=== PATIENT | male | born 1945 | race Caucasian/White ===

== ENCOUNTER 2020-04-01 11:23 | Inpatient (IN) | payer MEDICARE, OTHER ==
[~2020-04-01] VITALS: Ht 185.4 cm; Wt 103.3 kg
[~2020-04-01 11:23] MED LIST: ASPIR-LOX325 MG PO; BACTRIM 400 MG-1 TAB PO; CIPRO 500MG TA500 MG PO; COZAAR100 MG PO; FLOMAX 0.40.4 MG/CAP PO; LISINOPRIL40 MG PO; MEVACOR10 MG PO; NORCO 325 MG-51 TAB PO; NORVASC 10MG10 MG PO; SOTALOL80 MG PO; TEKTURNA300 MG PO
[2020-06-09] VITALS (12 sets, daily range): BP systolic 94–138; BP diastolic 57–80; PULSE 47–76; TEMP 97–987
[2020-06-09] MEDS ORDERED: DEMADEX10 MG PO (10:39)
[2020-06-09] MEDS ORDERED: FLOMAX 0.40.4 MG/CAP PO (10:41)
[2020-06-09] MEDS ORDERED: ATACAND32 MG PO (10:42)
[2020-06-09] MEDS ORDERED: BETAPACE 80MG80 MG PO (10:42)
[2020-06-09] MEDS ORDERED: NORVASC 10MG10 MG PO (10:43)
[2020-06-09] MEDS ORDERED: INSPRA50 MG PO (10:43)
[2020-06-09] MEDS ORDERED: ASPIRIN 32325 MG/TAB PO (10:44)
[2020-06-09] MEDS ORDERED: VITAMIND3 5000 PO (10:45)
[2020-06-09] MEDS ORDERED: CALTRATE-600 W600 MG PO (10:45)
[2020-06-09] MEDS ORDERED: TYLENOL 500MG500 MG PO (10:46)
[2020-06-09] MEDS ORDERED: MOTRIN 600600 MG/TAB PO (10:47)
[2020-06-09] MEDS ORDERED: MASON NATURAL1200 MG PO (10:47)
[2020-06-09] MEDS ORDERED: FOLIC ACID 40400 MCG PO (10:48)
[2020-06-09] MEDS ORDERED: METAMUCIL3.4 GM/DOS PO (10:50)
[2020-06-09] MEDS ORDERED: MIRALAX PA17 GM/Dose PO (10:51)
[2020-06-09] MEDS ORDERED: VITAMIN C500 MG PO (10:52)
[2020-06-09] MEDS ORDERED: B-121000 MCG PO (10:52)
[2020-06-09] MEDS ORDERED: IRON TABLETS325 MG PO (10:53)
[2020-06-10 00:16] VITALS: BP 147/81; PULSE 66; TEMP 97.9
[2020-06-10 04:55] VITALS: BP 133/75; PULSE 69; TEMP 97.8
[2020-06-10 07:12] LABS: HEMOGLOBIN 11.2 g/dl (13.5-18.0)
[2020-06-10 07:13] LABS: HEMATOCRIT 33.4 % (42.0-52.0)
[2020-06-10 07:27] VITALS: BP 124/76; PULSE 65; TEMP 98.4
[2020-06-10 12:00] VITALS: BP 114/73; PULSE 58; TEMP 97.5
[2020-06-10 16:00] VITALS: BP 133/72; PULSE 59; TEMP 97.9
[2020-06-10 20:00] VITALS: BP 125/73; PULSE 65; TEMP 98.6
[2020-06-11 00:27] VITALS: BP 120/65; PULSE 70; TEMP 98.9
[2020-06-11 03:10] VITALS: BP 143/78; PULSE 66; TEMP 98.4
[2020-06-11] MEDS ORDERED: ASPIRIN 32325 MG/TA1 PO (06:16)
[2020-06-11] MEDS ORDERED: ULTRAM 50MG TAB50 MG PO (06:16)
[2020-06-11] MEDS ORDERED: NORCO 325 MG-7.1 TAB PO (06:16)
[2020-06-11] MEDS ORDERED: CELEBREX 200MG200 MG PO (06:16)
[2020-06-11 07:08] LABS: HEMOGLOBIN 10.3 g/dl (13.5-18.0)
[2020-06-11 07:14] LABS: HEMATOCRIT 31.1 % (42.0-52.0)
[2020-06-11 07:43] VITALS: BP 115/66; PULSE 63; TEMP 97.9
[2020-06-11 11:05] VITALS: BP 94/64; PULSE 58; TEMP 98.1
[2020-08-06] MEDS ORDERED: CELEXA 20MG20 MG/TAB PO (07:41)
[2020-08-15] MEDS ORDERED: CELEBREX 200MG200 MG PO (08:11)
== END 2020-06-11 13:58 | disposition home or self-care (01) | DRG 470 ==
LOC: SURG 06-09 07:30 → INPTSU 06-09 09:27 → SURG 06-09 11:30
PROVIDERS: Physician Assistant; ADMIT Orthopaedic Surgery
PROC: 0SRC0J9 Replacement of Right Knee Joint with Synthetic Substitute, Cemented, Open Approach (ICD-10-PCS; principal; 2020-06-09 11:30)
DX: M17.11 Unilateral primary osteoarthritis, right knee (principal); I10 Essential (primary) hypertension; E78.00 Pure hypercholesterolemia, unspecified; E11.9 Type 2 diabetes mellitus without complications; Z88.0 Allergy status to penicillin; Z85.46 Personal history of malignant neoplasm of prostate
CPT/HCPCS: A4314; C1776; J0690; J1885; J2250; J2270; J2405; J2704; J3010; J7030

== ENCOUNTER 2020-06-28 16:29 | Emergency (ER) | payer MEDICARE, OTHER ==
[~2020-06-28] VITALS: Ht 185.4 cm; Wt 100.0 kg
[~2020-06-28 16:29] MED LIST changes: +ASPIRIN 32325 MG/TA1 PO; +ASPIRIN 32325 MG/TAB PO; +ATACAND32 MG PO; +B-121000 MCG PO; +BETAPACE 80MG80 MG PO; +CALTRATE-600 W600 MG PO; +CELEBREX 200MG200 MG PO; +DEMADEX10 MG PO; +FOLIC ACID 40400 MCG PO; +INSPRA50 MG PO; +IRON TABLETS325 MG PO; +MASON NATURAL1200 MG PO; +METAMUCIL3.4 GM/DOS PO; +MIRALAX PA17 GM/Dose PO; +MOTRIN 600600 MG/TAB PO; +NORCO 325 MG-7.1 TAB PO; +TYLENOL 500MG500 MG PO; +ULTRAM 50MG TAB50 MG PO; +VITAMIN C500 MG PO; +VITAMIND3 5000 PO
[2020-06-28 16:36] VITALS: TEMP 98.4
[2020-06-28 17:15] LABS: BASO # 0.1 (0.0-0.2); BASO % 0.4 % (0.0-2.0); EOS # 0.1 (0.0-0.7); EOS % 1.2 % (0-4.0); GRAN # 8.8 (1.4-6.5); GRAN % 77.5 % (42.2-75.2); HEMOGLOBIN 10.9 g/dl (13.5-18.0); LYMPH # 1.2 (1.2-3.4); LYMPH % 10.2 % (20.0-51.0); MEAN CELL VOLUME 91 fl (80.0-100.0); MEAN CORPUSCULAR HEMOGLOBIN 30 pg (27.0-31.0); MEAN CORPUSCULAR HGB CONC 33 g/dl (33.0-37.0); MEAN PLATELET VOLUME 8.7 fl (7.4-10.4); MONO # 1.2 (0.1-0.6); MONO % 10.3 % (1.7-9.3); PLATELET COUNT 373 K/mm3 (130-400); RED BLOOD COUNT 3.64 M/mm3 (4.20-5.60); REDCELL DISTRIBUTION WIDTH-CV 12.8 % (11.5-14.5)
[2020-06-28 17:31] LABS: BILIRUBIN,TOTAL 0.3 mg/dL (0.0-1.0); CALCIUM 9.1 mg/dL (8.4-10.2); CREATININE, serum 1.07 (0.66-1.25); TOTAL PROTEIN 7.4 gm/dL (6.4-8.2)
[2020-06-28 18:44] VITALS: BP 125/78; PULSE 61
[2020-08-06] MEDS ORDERED: CELEXA 20MG20 MG/TAB PO (07:41)
[2020-08-15] MEDS ORDERED: CELEBREX 200MG200 MG PO (08:11)
== END 2020-06-28 19:05 | disposition home or self-care (01) ==
LOC: COL.ER 16:29
PROVIDERS: Nurse Practitioner Primary Care
DX: T81.41XA Infection following a procedure, superficial incisional surgical site, initial encounter (principal); T81.30XA Disruption of wound, unspecified, initial encounter; D72.829 Elevated white blood cell count, unspecified; E11.9 Type 2 diabetes mellitus without complications; Z96.652 Presence of left artificial knee joint; X58.XXXA Exposure to other specified factors, initial encounter
CPT/HCPCS: J0696; J7030

== ENCOUNTER 2020-07-06 18:15 | Inpatient (IN) | payer MEDICARE, OTHER ==
[~2020-07-06] VITALS: Ht 185.4 cm; Wt 97.7 kg
[2020-07-06] MEDS ORDERED: CIPRO 250MG TA250 MG PO (19:47)
[2020-07-06] MEDS ORDERED: MINOCYCLIN100 MG/CAP PO (19:47)
--- NOTE | 2020-07-06 19:58 | NUR ---
Patient admited via EMS, up to restroom with SBA. Gauze and tape dressing to right knee is CDI. INT to right AC without complications. Patient oriented to room. All questions answered. No further needs at this time.
[2020-07-06 21:55] LABS: BASO # 0.1 (0.0-0.2); EOS # 0.3 (0.0-0.7); EOS % 4.1 % (0-4.0); GRAN # 4.3 (1.4-6.5); GRAN % 58.7 % (42.2-75.2); LYMPH # 1.8 (1.2-3.4); LYMPH % 25.1 % (20.0-51.0); MEAN CELL VOLUME 92 fl (80.0-100.0); MEAN CORPUSCULAR HGB CONC 31 g/dl (33.0-37.0); MEAN PLATELET VOLUME 8.4 fl (7.4-10.4); MONO # 0.8 (0.1-0.6); MONO % 10.7 % (1.7-9.3); PLATELET COUNT 480 K/mm3 (130-400); RED BLOOD COUNT 3.45 M/mm3 (4.20-5.60); REDCELL DISTRIBUTION WIDTH-CV 12.9 % (11.5-14.5)
[2020-07-06 21:56] LABS: HEMATOCRIT 31.6 % (42.0-52.0); HEMOGLOBIN 9.8 g/dl (13.5-18.0); MEAN CORPUSCULAR HEMOGLOBIN 28 pg (27.0-31.0)
[2020-07-06 22:10] VITALS: BP 119/74; PULSE 69; TEMP 98.8
[2020-07-06 22:38] LABS: CALCIUM 8.8 mg/dL (8.4-10.2); CREATININE, serum 0.88 (0.66-1.25); POTASSIUM 4.4 mmol/L (3.4-5.0)
--- NOTE | 2020-07-06 23:30 | NUR ---
Patient requested his IV be moved due to it occluding when he bends his arm. New IV to left wrist. IV in AC discontinued. Vancomycin infusing. Sent a culture of patient's wound on knee down to lab. Covered with gauze and tape. Patient has been voiding in urinal. No additional needs at this time.
--- NOTE | 2020-07-06 23:34 | NUR ---
Vancomycin Initial Dosing Pharmacy Note Ordering provider: Sang Solares MD 74 YO M Indication/duration: BONE/JOINT INFECTION (5 DAYS) GOAL: 15-20 HX: NONE IDENTIFIED BMI: 28.4 WT: 97.7 KG SCR: 0.88 ESTCRCL~ 102 ML/MIN T 1/2 ~ 8H TMAX: 98.8 WBC: WNL LA: WNL MICRO PENDING PT LOADED WITH VANCO 2 GM X1 (~20 MG/KG). WILL START A MAINTENANCE REGIMEN OF 1.75 GM Q12H. WILL FOLLOW RENAL FUNCTION, MICRO, AND CARE PLAN FOR NEED TO ADJUST THERAPY. THANK YOU FOR THIS DOSING CONSULT!
[2020-07-06 23:58] VITALS: BP 128/71; PULSE 68; TEMP 98.3
[2020-07-07 04:00] VITALS: BP 118/75; PULSE 66; TEMP 99.3
[2020-07-07 06:54] LABS: BASO # 0.1 (0.0-0.2); BASO % 0.8 % (0.0-2.0); EOS # 0.3 (0.0-0.7); GRAN # 3.7 (1.4-6.5); GRAN % 55.6 % (42.2-75.2); LYMPH # 1.7 (1.2-3.4); LYMPH % 26.2 % (20.0-51.0); MEAN CELL VOLUME 92 fl (80.0-100.0); MEAN CORPUSCULAR HGB CONC 32 g/dl (33.0-37.0); MEAN PLATELET VOLUME 8.4 fl (7.4-10.4); MONO # 0.8 (0.1-0.6); MONO % 11.6 % (1.7-9.3); PLATELET COUNT 471 K/mm3 (130-400); RED BLOOD COUNT 3.11 M/mm3 (4.20-5.60)
[2020-07-07 06:55] LABS: HEMATOCRIT 28.6 % (42.0-52.0); HEMOGLOBIN 9.2 g/dl (13.5-18.0); MEAN CORPUSCULAR HEMOGLOBIN 30 pg (27.0-31.0)
[2020-07-07 06:56] LABS: ALBUMIN 3.4 gm/dL (3.5-5.0); BILIRUBIN,TOTAL 0.2 mg/dL (0.0-1.0); CALCIUM 8.5 mg/dL (8.4-10.2); CREATININE, serum 0.64 (0.66-1.25); POTASSIUM 4.2 mmol/L (3.4-5.0); TOTAL PROTEIN 6.7 gm/dL (6.4-8.2)
--- NOTE | 2020-07-07 07:06 | NUR ---
Pt resting in bed. He has just received his breakfast. He reports having a little nausea, but is hoping that the breakfast helps. Will return to check on him, call light within reach
--- NOTE | 2020-07-07 07:14 | NUR ---
ALICJA Ortez notified of consult.
[2020-07-07 07:42] VITALS: BP 127/74; PULSE 66; TEMP 97.9
[2020-07-07] MEDS ORDERED: ASPIRIN 32325 MG/TAB PO (09:59)
--- NOTE | 2020-07-07 10:09 | NUR ---
Pt has done well this morning. He has been up with therapy, has been seen by PT, Dr Morrison, Ortho and anesthesia. Pt is aware that he is having an UGI tomorrow. Dressing to his right knee was removed and changed to a wet to dry per his home routine prior to coming in. Quarter size area scabbed. Small area red pt reports due to tape prior to coming to the hospital. Pt has minimal pain complaints. He states overall the main reason for coming in is the upset stomach he has been having.
--- NOTE | 2020-07-07 12:51 | NUR ---
First visit from the brick picker. No needs right now.
[2020-07-07 13:00] VITALS: BP 132/67; PULSE 72; TEMP 98.3
--- NOTE | 2020-07-07 15:53 | NUR ---
Airframe Technical Officer met with patient to discuss discharge planning. Patient lives in [place] with his , Regi (ph#[phone]) and sees Dr. Orta for primary care. Patient obtains medications from [facility] with no difficulties. Patient has a cane and walker at home and reports independence with ADLS. Patient has DPOA-HC in EMR which designates his , Regi and daughter, Carolynn. Patient plans to return home upon discharge and continue with outpatient PT at [facility]. Discharge Plan: Home
[2020-07-07 16:23] VITALS: BP 127/80; PULSE 69; TEMP 98.3
--- NOTE | 2020-07-07 17:21 | NUR ---
Pt has done well throughout the day. Wet to dry dressing repeated to right knee. No drainage on dressing removed, although area is now soft and moist
[2020-07-07 19:18] VITALS: BP 129/65; PULSE 72; TEMP 99.3
--- NOTE | 2020-07-07 21:00 | NUR ---
Patient resting in bed, no complaints of pain. Fluids infusing per orders. Wet to dry dressing to right knee was changed. Patient tolerating food in small amounts. Patient is aware he will be NPO after midnight for EGD tomorrow morning.
[2020-07-07 23:52] VITALS: BP 122/77; PULSE 62; TEMP 99
[2020-07-08 05:14] VITALS: BP 127/73; PULSE 59; TEMP 98.8
--- NOTE | 2020-07-08 06:40 | NUR ---
PT done for upper GI
--- NOTE | 2020-07-08 06:45 | NUR ---
Patient taken down for EGD.
[2020-07-08 06:55] LABS: BASO # 0.1 (0.0-0.2); BASO % 1.1 % (0.0-2.0); EOS # 0.3 (0.0-0.7); EOS % 5.3 % (0-4.0); GRAN % 54.6 % (42.2-75.2); LYMPH # 1.4 (1.2-3.4); LYMPH % 26.1 % (20.0-51.0); MEAN CELL VOLUME 91 fl (80.0-100.0); MEAN CORPUSCULAR HGB CONC 32 g/dl (33.0-37.0); MEAN PLATELET VOLUME 8.4 fl (7.4-10.4); MONO # 0.7 (0.1-0.6); PLATELET COUNT 432 K/mm3 (130-400); RED BLOOD COUNT 3.21 M/mm3 (4.20-5.60); REDCELL DISTRIBUTION WIDTH-CV 12.7 % (11.5-14.5)
[2020-07-08 06:56] LABS: HEMATOCRIT 29.2 % (42.0-52.0); HEMOGLOBIN 9.3 g/dl (13.5-18.0); MEAN CORPUSCULAR HEMOGLOBIN 29 pg (27.0-31.0)
[2020-07-08 07:16] LABS: C-REACTIVE PROTEIN 2.5 mg/dL (0.0-0.9); CALCIUM 8.6 mg/dL (8.4-10.2); CREATININE, serum 0.66 (0.66-1.25); MAGNESIUM 1.9 mg/dL (1.6-2.3)
[2020-07-08 07:30] VITALS: BP 122/72; PULSE 63; TEMP 98.2
--- NOTE | 2020-07-08 07:40 | NUR ---
Pt back up from upper GI. Pt is awake and has no complaints of pain. He did ambulate to transfer to his bed. His is present in the room. He reports that he is not hungry at this time and is wanting to rest
[2020-07-08 07:44] VITALS: BP 140/91; PULSE 60; TEMP 98.1
[2020-07-08 07:45] VITALS: BP 132/78; PULSE 59
[2020-07-08 08:00] VITALS: BP 131/80; PULSE 58
[2020-07-08 08:15] VITALS: BP 137/77; PULSE 59
[2020-07-08] MEDS ORDERED: TUMS ULTRA ST1000 MG PO (09:19)
[2020-07-08] MEDS ORDERED: FERROUS SU325 MG/TAB PO (09:19)
[2020-07-08] MEDS ORDERED: PROTONIX 40MG T40 MG PO (09:21)
--- NOTE | 2020-07-08 11:25 | NUR ---
Reviewed discharge instructions with pt to include follow up appointment and prescriptions. INT removed from left wrist. Informed him to notify nursing when his arrives
[2020-08-06] MEDS ORDERED: CELEXA 20MG20 MG/TAB PO (07:41)
[2020-08-15] MEDS ORDERED: CELEBREX 200MG200 MG PO (08:11)
== END 2020-07-08 11:42 | disposition home or self-care (01) | DRG 863 ==
LOC: SURG 18:15
PROVIDERS: Internal Medicine Gastroenterology; Student in an Organized Health Care Education/Training Program; ADMIT Internal Medicine
PROC: 0DB68ZX Excision of Stomach, Via Natural or Artificial Opening Endoscopic, Diagnostic (ICD-10-PCS; principal; 2020-07-08 07:00)
DX: T81.41XA Infection following a procedure, superficial incisional surgical site, initial encounter (principal); L02.415 Cutaneous abscess of right lower limb; K21.9 Gastro-esophageal reflux disease without esophagitis; I10 Essential (primary) hypertension; E11.9 Type 2 diabetes mellitus without complications; M54.9 Dorsalgia, unspecified; G89.29 Other chronic pain; Z66 Do not resuscitate; K29.70 Gastritis, unspecified, without bleeding; N40.0 Benign prostatic hyperplasia without lower urinary tract symptoms; D64.9 Anemia, unspecified; K59.09 Other constipation; T39.395A Adverse effect of other nonsteroidal anti-inflammatory drugs [NSAID], initial encounter; T36.95XA Adverse effect of unspecified systemic antibiotic, initial encounter; I49.9 Cardiac arrhythmia, unspecified; Z85.46 Personal history of malignant neoplasm of prostate; Z96.653 Presence of artificial knee joint, bilateral; Z79.82 Long term (current) use of aspirin; Z87.891 Personal history of nicotine dependence; Z88.0 Allergy status to penicillin; Z88.8 Allergy status to other drugs, medicaments and biological substances; Z92.3 Personal history of irradiation
CPT/HCPCS: 99223-AI; 99232-AI; 99239; J2704; J3370; J7030; J7040; J7050

== ENCOUNTER 2020-08-04 08:36 | Outpatient (CLI) | payer MEDICARE, OTHER ==
[~2020-08-04] VITALS: Ht 185.4 cm; Wt 94.8 kg
[~2020-08-04 08:36] MED LIST changes: +CIPRO 250MG TA250 MG PO; +FERROUS SU325 MG/TAB PO; +MINOCYCLIN100 MG/CAP PO; +PROTONIX 40MG T40 MG PO; +TUMS ULTRA ST1000 MG PO
[2020-08-04 09:34] VITALS: BP 114/72; PULSE 63; TEMP 98
[2020-08-06] MEDS ORDERED: CELEXA 20MG20 MG/TAB PO (07:41)
[2020-08-15] MEDS ORDERED: CELEBREX 200MG200 MG PO (08:11)
== END 2020-08-04 09:58 | disposition home or self-care (01) ==
LOC: EUO 08:36
DX: Z45.2 Encounter for adjustment and management of vascular access device (principal); Z96.641 Presence of right artificial hip joint; M25.461 Effusion, right knee
CPT/HCPCS: C1751

== ENCOUNTER 2020-09-22 09:00 | Outpatient (RCR) | payer MEDICARE, OTHER ==
[2020-08-06 07:46] VITALS: BP 122/73; PULSE 74; TEMP 98.3
[2020-08-07 07:45] VITALS: BP 112/73; PULSE 64; TEMP 97.6
[2020-08-08 08:30] VITALS: BP 133/81; PULSE 67; TEMP 98.5
[2020-08-09 08:53] VITALS: BP 124/70; PULSE 60; TEMP 97.4
[2020-08-10 07:54] VITALS: BP 114/73; PULSE 67; TEMP 98.2
[2020-08-10 08:11] LABS: CALCIUM 9.6 mg/dL (8.4-10.2); CREATININE, serum 0.74 (0.66-1.25); POTASSIUM 4.6 mmol/L (3.4-5.0)
[2020-08-11 07:40] VITALS: BP 134/71; PULSE 68; TEMP 98
[2020-08-12 07:42] VITALS: BP 114/75; PULSE 72; TEMP 98
[2020-08-13 08:13] VITALS: BP 119/77; PULSE 81; TEMP 98.4
[2020-08-14 07:37] VITALS: BP 125/82; PULSE 67; TEMP 97.8
[2020-08-15 08:13] VITALS: BP 126/80; PULSE 70; TEMP 98.3
[2020-08-16 08:12] VITALS: BP 120/77; PULSE 66; TEMP 98.1
[2020-08-17 07:37] VITALS: BP 117/77; PULSE 65; TEMP 98.2
[2020-08-17 09:08] LABS: CALCIUM 9.5 mg/dL (8.4-10.2); CREATININE, serum 0.74 (0.66-1.25); POTASSIUM 4.3 mmol/L (3.4-5.0)
[2020-08-18 07:38] VITALS: BP 121/76; PULSE 70; TEMP 97.9
[2020-08-19 08:26] VITALS: BP 113/77; PULSE 55; TEMP 97.9
[2020-08-20 07:38] VITALS: BP 114/76; PULSE 65; TEMP 98.3
--- NOTE | 2020-08-20 07:41 | NUR ---
PT ARRIVED TO ROOM 14. PT'S VSS, MED REVIEWED. PICC ASSESSED. MEDS GIVEN.
[2020-08-21 07:37] VITALS: BP 114/76; PULSE 63; TEMP 98.5
[2020-08-22 07:34] VITALS: BP 117/78; PULSE 65; TEMP 98.5
[2020-08-23 07:59] VITALS: BP 117/75; PULSE 62; TEMP 98.1
[2020-08-24 07:44] VITALS: BP 123/77; PULSE 70; TEMP 98.3
[2020-08-24 08:04] LABS: CALCIUM 9.4 mg/dL (8.4-10.2); CREATININE, serum 0.63 (0.66-1.25); POTASSIUM 4.4 mmol/L (3.4-5.0)
[2020-08-25 07:40] VITALS: BP 124/75; PULSE 65; TEMP 98.4
[2020-08-26 07:43] VITALS: BP 103/64; PULSE 68; TEMP 98.2
[2020-08-27 07:41] VITALS: BP 109/76; PULSE 68; TEMP 98.4
[2020-08-28 07:36] VITALS: BP 135/76; PULSE 60; TEMP 98.5
[2020-08-29 07:45] VITALS: BP 122/77; PULSE 62; TEMP 98.4
[2020-08-30 07:41] VITALS: BP 126/79; PULSE 60; TEMP 98.4
[2020-08-31 07:37] VITALS: BP 122/79; PULSE 63; TEMP 98.4
[2020-08-31 08:03] LABS: CALCIUM 9.5 mg/dL (8.4-10.2); CREATININE, serum 0.68 (0.66-1.25); POTASSIUM 4.3 mmol/L (3.4-5.0)
[2020-09-01 07:45] VITALS: BP 118/82; PULSE 66; TEMP 98.7
[2020-09-02 07:42] VITALS: BP 104/69; PULSE 69; TEMP 98.5
[2020-09-03 07:43] VITALS: BP 126/83; PULSE 66; TEMP 98.6
[2020-09-04 07:43] VITALS: BP 106/70; PULSE 63; TEMP 97.9
[2020-09-05 07:44] VITALS: BP 117/81; PULSE 65; TEMP 97.9
[2020-09-06 10:00] VITALS: BP 129/76; PULSE 68; TEMP 97.8
[2020-09-07 07:57] VITALS: BP 124/77; PULSE 62; TEMP 97.9
[2020-09-07 08:19] LABS: CALCIUM 9.2 mg/dL (8.4-10.2); CREATININE, serum 0.68 (0.66-1.25); POTASSIUM 4.3 mmol/L (3.4-5.0)
[2020-09-08 07:35] VITALS: BP 123/75; PULSE 66; TEMP 97.8
[2020-09-09 07:37] VITALS: BP 113/70; PULSE 70; TEMP 98
[2020-09-10 07:39] VITALS: BP 115/73; PULSE 63; TEMP 97.9
[2020-09-11 07:30] VITALS: BP 115/78; PULSE 63; TEMP 98
[2020-09-12 07:30] VITALS: BP 120/81; PULSE 62; TEMP 98.2
[2020-09-13 07:39] VITALS: BP 115/76; PULSE 69; TEMP 98.1
[2020-09-14 07:41] VITALS: BP 120/80; PULSE 64; TEMP 97.6
[2020-09-14 07:58] LABS: CALCIUM 9.7 mg/dL (8.4-10.2); CREATININE, serum 0.77 (0.66-1.25); POTASSIUM 4.5 mmol/L (3.4-5.0)
[2020-09-15 08:45] VITALS: BP 119/78; PULSE 66; TEMP 98
[2020-09-16 07:40] VITALS: BP 118/76; PULSE 65; TEMP 65
--- NOTE | 2020-09-16 10:19 | NUR ---
Pt called and report Dr wants pICC line to stay in place another week.Apt made for PICC dressing change.
[~2020-09-22] VITALS: Ht 185.4 cm; Wt 97.4 kg
[~2020-09-22 09:00] MED LIST changes: +CELEXA 20MG20 MG/TAB PO
[2020-09-22 09:01] VITALS: BP 119/82; PULSE 58; TEMP 98
== END 2020-09-22 09:30 | disposition home or self-care (01) ==
LOC: EUO 09:00
PROVIDERS: Orthopaedic Surgery
DX: Z96.651 Presence of right artificial knee joint (principal); Z79.2 Long term (current) use of antibiotics
CPT/HCPCS: J0878

== ENCOUNTER 2021-08-18 15:42 | Emergency (ER) | payer MEDICARE, OTHER ==
[~2021-08-18] VITALS: Ht 185.4 cm; Wt 102.7 kg
[2021-08-18] MEDS ORDERED: PERCOCET 325 MG1 TA2 PO (18:18)
[2021-08-18] MEDS ORDERED: MINOCYCLIN100 MG/CAP PO (18:18)
[2021-08-18 18:43] VITALS: BP 158/92; PULSE 86; TEMP 99.9
== END 2021-08-18 18:55 | disposition home or self-care (01) ==
LOC: COL.ER 15:42
DX: M25.461 Effusion, right knee (principal); Z86.16 Personal history of COVID-19; Z88.0 Allergy status to penicillin
CPT/HCPCS: J1885